=== PATIENT | male | born 1940 | race Two or more races ===

== ENCOUNTER 2017-01-26 18:47 | Observation (INO) | payer MEDICARE ==
[~2017-01-26] VITALS: Ht 167.6 cm; Wt 79.4 kg
[2017-01-26] MEDS ORDERED: DILTIAZEM HCL 50 MG/10 ML VIAL IV ONE (19:23)
[2017-01-26] MEDS ORDERED: DILTIAZEM HCL 25 MG/5 ML VIAL IV ONE (19:30)
[2017-01-26] MEDS ORDERED: SODIUM CHLORIDE 0.9% 1,000 ML IV ONE (19:39)
[2017-01-26] MEDS ORDERED: ETOMIDATE (2MG/ML) 20ML VIAL IV ONE ×2 (19:42→20:00)
[2017-01-26] MEDS ORDERED: SUCCINYLCHOLINE CHLORIDE 20 MG/ML 10ML VIAL IV ONE ×2 (19:43→20:00)
[2017-01-26] MEDS ORDERED: MIDAZOLAM DRIP 100 mg/100mL NS 100 ML IV SCH (19:57)
[2017-01-26 20:00] VITALS: BP 182/77
[2017-01-26] MEDS ORDERED: MIDAZOLAM DRIP 100 mg/100mL NS 0 ML IV ONE (20:01)
[2017-01-26] MEDS ORDERED: NICARDIPINE 25MG/250ML BAG KIT 250 ML IV SCH (20:03)
[2017-01-26 20:05] LABS: Basophils # (auto) 0 uL; Basophils % (auto) 0.5 % (0.0-2.0); Eosinophils # (auto) 0.2 uL; Eosinophils % (auto) 2.2 % (0.0-7.0); Hematocrit 38.7 % (41.0-53.0); Hemoglobin 12.8 g/dL (13.5-17.5); Lymphocytes # (auto) 2.8 uL; Lymphocytes % (auto) 29.9 % (10.0-50.0); Mean Corpuscular Volume 87.9 fL (80.0-100.0); Mean Platelet Volume 9.9 fL (7.4-10.4); Monocytes # (auto) 0.7 uL; Monocytes % (auto) 7.5 % (0.0-12.0); Neutrophils # (auto) 5.6 uL; Neutrophils % (auto) 59.9 % (37.0-80.0); Platelet Count (auto) 360 10^3/uL (140-450); Red Cell Distribution Width 13.7 % (11.6-16.0); White Blood Cell 9.3 10^3/uL (4.4-10.8)
[2017-01-26] MEDS ORDERED: ASPirin 81 mg TAB PO ONE (20:15)
[2017-01-26 20:22] LABS: Albumin 3.7 g/dL (3.4-5.0); Anion Gap 12 (5-15); Aspartate Aminotransferase 14 U/L (15-37); BUN/Creatinine Ratio 15.6; Blood Urea Nitrogen 19 mg/dL (7-18); Calcium 8.4 mg/dL (8.5-10.1); Carbon Dioxide 22 mmol/L (21-32); Chloride 106 mmol/L (98-107); GFR African American 74 mL/min; GFR Non-African American 61 mL/min; Glucose 212 mg/dL (74-106); Magnesium 1.1 mg/dL (1.6-2.6); Potassium 3.5 mmol/L (3.5-5.1); Sodium 140 mmol/L (136-145)
[2017-01-26 20:26] LABS: INR 0.95 (0.9-1.15); Partial Thromboplastin Time 28.4 sec (22.64-33.71); Prothrombin Time 10.3 sec (9.37-12.3)
[2017-01-26 20:27] LABS: Alkaline Phosphatase 87 U/L (45-117); Bilirubin, Total 0.3 mg/dL (0.2-1.0); Total Protein 7.1 g/dL (6.4-8.2)
== END 2017-01-26 21:19 | disposition short-term general hospital (02) | DRG 65 ==
LOC: ER 18:50 → OVERFLOW 19:41 → ER 21:19
PROVIDERS: ADMIT Family Medicine; ATTEND Family Medicine
DX: I63.9 Cerebral infarction, unspecified (principal); G81.90 Hemiplegia, unspecified affecting unspecified side; I10 Essential (primary) hypertension; E11.65 Type 2 diabetes mellitus with hyperglycemia; I25.2 Old myocardial infarction; Z95.1 Presence of aortocoronary bypass graft
CPT/HCPCS: 31500; 36415; 51701; 70450; 71010; 80053; 80320; 82962; 83735; 84484; 85025; 85379; 85610; 85730; 87070; 87205; 93005; 96365; 96368; 96375; 99291; G0378; J0330; J7030